=== PATIENT | male | born 1960 | race Caucasian/White ===

== ENCOUNTER 2018-04-20 10:16 | Emergency (ER) | payer BC ==
--- NOTE | 2018-04-20 11:55 | EDPHYS ---
Physician Documentation [facility] Name: Pipe Machado Jr Age: 57 yrs Sex: Male : 1960 Arrival Date: 04/20/2018 Time: 10:20 Bed 15 Private MD: Edwardo Chapman E ED Physician Olivier Downs HPI: 04/20 11:53 This 57 yrs old Male presents to ER via Ambulatory with complaints of Cough. kb 11:53 The patient or guardian reports cough, that is intermittent, described as mild, with no kb sputum. Onset: The symptoms/episode began/occurred last night. Severity of symptoms: At their worst the symptoms were mild, moderate, in the emergency department the symptoms are unchanged. Modifying factors: The symptoms are alleviated by nothing, the symptoms are aggravated by nothing. Associated signs and symptoms: Pertinent positives: rhinorrhea, Pertinent negatives: chest pain, diarrhea, ear ache, fever, rhinorrhea, sore throat, vomiting. The patient has not experienced similar symptoms in the past. The patient has not recently seen a physician. Historical: - Allergies: 10:33 PENICILLINS; aj1 - Home Meds: 10:33 None [Active]; aj1 - PMHx: 10:33 Myocardial infarction; aj1 - PSHx: 10:33 Cholecystectomy; finger amuptation; Knee surgery; aj1 - Immunization history:: Flu vaccine is up to date. - Social history:: Smoking status: Patient/guardian denies using tobacco. - Ebola Screening: : Patient denies travel to an Ebola-affected area in the 21 days before illness onset. ROS: 11:52 Constitutional: Negative for fever, chills, and weight loss, Cardiovascular: Negative kb for chest pain, palpitations, and edema, Abdomen/GI: Negative for abdominal pain, nausea, vomiting, diarrhea, and constipation, Back: Negative for injury and pain, : Negative for injury, bleeding, discharge, and swelling, MS/Extremity: Negative for injury and deformity, Skin: Negative for injury, rash, and discoloration, Neuro: Negative for headache, weakness, numbness, tingling, and seizure. 11:52 Respiratory: Positive for cough, with no reported sputum. 11:52 ENT: Positive for sinus congestion. kb Exam: 11:52 Constitutional: This is a well developed, well nourished patient who is awake, alert, kb and in no acute distress. Head/Face: Normocephalic, atraumatic. ENT: Nares patent. No nasal discharge, no septal abnormalities noted. Tympanic membranes are normal and external auditory canals are clear. Oropharynx with no redness, swelling, or masses, exudates, or evidence of obstruction, uvula midline. Mucous membranes moist. Neck: Trachea midline, no thyromegaly or masses palpated, and no cervical lymphadenopathy. Supple, full range of motion without nuchal rigidity, or vertebral point tenderness. No Meningismus. Chest/axilla: Normal chest wall appearance and motion. Nontender with no deformity. No lesions are appreciated. Cardiovascular: Regular rate and rhythm with a normal S1 and S2. No gallops, murmurs, or rubs. Normal PMI, no JVD. No pulse deficits. Respiratory: Lungs have equal breath sounds bilaterally, clear to auscultation and percussion. No rales, rhonchi or wheezes noted. No increased work of breathing, no retractions or nasal flaring. Abdomen/GI: Soft, non-tender, with normal bowel sounds. No distension or tympany. No guarding or rebound. No evidence of tenderness throughout. Skin: Warm, dry with normal turgor. Normal color with no rashes, no lesions, and no evidence of cellulitis. MS/ Extremity: Pulses equal, no cyanosis. Neurovascular intact. Full, normal range of motion. Neuro: Awake and alert, GCS 15, oriented to person, place, time, and situation. Cranial nerves II-XII grossly intact. Motor strength 5/5 in all extremities. Sensory grossly intact. Cerebellar exam normal. Normal gait. Vital Signs: 10:33 BP 113 / 81; Pulse 78; Resp 18; Temp 97.8; Pulse Ox 98% on R/A; Weight 120.2 kg (R); aj1 Height 6 ft. 6 in. (198.12 cm) (R); Pain 0/10; 11:30 BP 116 / 83; Pulse 81; Resp 17; Pulse Ox 99% on R/A; rb1 12:20 BP 115 / 79; Pulse 75; Resp 17; Pulse Ox 98% on R/A; rb1 10:33 Body Mass Index 30.62 (120.20 kg, 198.12 cm) aj MDM: 10:31 Patient medically screened. kb 11:52 Data reviewed: vital signs, nurses notes. Data interpreted: Pulse oximetry: on room air kb is 98 %. Interpretation: normal. Counseling: I had a detailed discussion with the patient and/or guardian regarding: the historical points, exam findings, and any diagnostic results supporting the discharge/admit diagnosis, lab results, the need for outpatient follow up, a family practitioner, to return to the emergency department if symptoms worsen or persist or if there are any questions or concerns that arise at home. 04/20 10:43 Order name: Flu; Complete Time: 11:41 kb 04/20 10:43 Order name: Strep; Complete Time: 11:41 kb 04/20 11:26 Order name: Throat Culture EDMS Administered Medications: 12:08 Drug: SOLU-Medrol 125 mg Route: IM; Site: right gluteus; rb1 Disposition: 13:28 Co-signature as Attending Physician, Olivier Downs MD. rn Disposition: 04/20/18 11:55 Discharged to Home. Impression: Acute sinusitis. - Condition is Stable. - Discharge Instructions: Sinusitis, Adult, [id number]. - Medication Reconciliation Form, Thank You Letter, Antibiotic Education, Prescription Opioid Use form. - Follow up: Emergency Department; When: As needed; Reason: Worsening of condition. Follow up: Private Physician; When: 2 - 3 days; Reason: Recheck today's complaints, Continuance of care, Re-evaluation by your physician. - Notes: Take Flonase Daily Take an antihistamine with decongestant daily (Claritin D, Tona D or Zyrtec D) Take Delsym as needed for cough Signatures: Dispatcher [employer] EDMS Suad Purvis, [employer]ER-C [employer] SERVICER-CkMariah Shelton, RN RN aj1 Olivier Downs MD MD rn Barber, Rebecca, RN RN rb1 Corrections: (The following items were deleted from the chart) 11:52 11:52 Constitutional: Negative for fever, chills, and weight loss, Cardiovascular: kb Negative for chest pain, palpitations, and edema, Abdomen/GI: Negative for abdominal pain, nausea, vomiting, diarrhea, and constipation, Back: Negative for injury and pain, : Negative for injury, bleeding, discharge, and swelling, MS/Extremity: Negative for injury and deformity, Skin: Negative for injury, rash, and discoloration, Neuro: Negative for headache, weakness, numbness, tingling, and seizure, kb 12:25 11:55 04/20/2018 11:55 Discharged to Home. Impression: Acute sinusitis. Condition is rb1 Stable. Discharge Instructions: Sinusitis, Adult, [id number]. Forms are Medication Reconciliation Form, Thank You Letter, Antibiotic Education, Prescription Opioid Use. Follow up: Emergency Department; When: As needed; Reason: Worsening of condition. Follow up: Private Physician; When: 2 - 3 days; Reason: Recheck today's complaints, Continuance of care, Re-evaluation by your physician. kb
--- NOTE | 2018-04-20 11:55 | ER ---
Nurse's Notes [facility] Name: Pipe Machado Jr Age: 57 yrs Sex: Male : 1960 Arrival Date: 04/20/2018 Time: 10:20 Bed 15 Private MD: Edwardo Chapman E Diagnosis: Acute sinusitis Presentation: 04/20 10:30 Presenting complaint: Patient states: "I had a bad cough last night and it was deep and aj1 I had sinus drainage all night." Reports running fever this morning. Transition of care: patient was not received from another setting of care. Transition of care: patient was not received from another setting of care. Onset of symptoms was April 20, 2018. Risk Assessment: Do you want to hurt yourself or someone else? Patient reports no desire to harm self or others. Initial Sepsis Screen: Does the patient meet any 2 criteria? No. Patient's initial sepsis screen is negative. Does the patient have a suspected source of infection? No. Patient's initial sepsis screen is negative. Care prior to arrival: None. 10:30 Method Of Arrival: Ambulatory aj1 10:30 Acuity: ISMAEL 4 aj1 Triage Assessment: 10:33 General: Appears in no apparent distress. comfortable, Behavior is calm, cooperative, aj1 appropriate for age. Pain: Denies pain. EENT: Parent/caregiver reports the patient having sinus drainage. Neuro: Level of Consciousness is awake, alert, obeys commands. Cardiovascular: Patient's skin is warm and dry. Respiratory: Reports cough that is hacking, persistent Airway is patent Respiratory effort is even, unlabored, Respiratory pattern is regular, symmetrical. Historical: - Allergies: 10:33 PENICILLINS; aj1 - Home Meds: 10:33 None [Active]; aj1 - PMHx: 10:33 Myocardial infarction; aj1 - PSHx: 10:33 Cholecystectomy; finger amuptation; Knee surgery; aj1 - Immunization history:: Flu vaccine is up to date. - Social history:: Smoking status: Patient/guardian denies using tobacco. - Ebola Screening: : Patient denies travel to an Ebola-affected area in the 21 days before illness onset. Screenin:35 Abuse screen: Denies threats or abuse. Nutritional screening: No deficits noted. rb1 Tuberculosis screening: No symptoms or risk factors identified. Fall Risk None identified. Assessment: 10:35 General: Appears in no apparent distress. comfortable, Behavior is calm, cooperative, rb1 Reports fever for 0-12 hours. Pain: Denies pain. Neuro: Level of Consciousness is awake, alert, obeys commands, Oriented to person, place, time, situation. Cardiovascular: Capillary refill < 3 seconds is brisk in bilateral fingers. Respiratory: Reports cough that is productive, doesn't know what color the sputum is. Airway is patent Respiratory effort is even, unlabored, Respiratory pattern is regular, symmetrical. GI: No signs and/or symptoms were reported involving the gastrointestinal system. : No signs and/or symptoms were reported regarding the genitourinary system. Derm: Skin is pink, warm \\T\\ dry. 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 11:30 Reassessment: Patient appears in no apparent distress at this time. No changes from rb1 previously documented assessment. 12:09 Reassessment: Discharge pending due to shot time. rb1 12:23 Reassessment: No adverse reactions are seen at this time. Pt. tolerated shot well. rb1 Vital Signs: 10:33 BP 113 / 81; Pulse 78; Resp 18; Temp 97.8; Pulse Ox 98% on R/A; Weight 120.2 kg (R); aj1 Height 6 ft. 6 in. (198.12 cm) (R); Pain 0/10; 11:30 BP 116 / 83; Pulse 81; Resp 17; Pulse Ox 99% on R/A; rb1 12:20 BP 115 / 79; Pulse 75; Resp 17; Pulse Ox 98% on R/A; rb1 10:33 Body Mass Index 30.62 (120.20 kg, 198.12 cm) aj1 ED Course: 10:20 Patient arrived in ED. sb2 10:20 Edwardo Chapman MD is Private Physician. sb2 10:20 Suad Purvis [facility]-C [facility]. kb 10:20 Olivier Downs MD is Attending Physician. kb 10:32 Triage completed. aj1 10:33 Gina Domingo, GREGORIO is Primary Nurse. sv 10:33 Arm band placed on Patient placed in an exam room. aj1 10:35 Patient has correct armband on for positive identification. Bed in low position. Call rb1 light in reach. Side rails up X 1. Pulse ox on. NIBP on. 10:50 Flu and/or RSV swab sent to lab. Strep swab sent to lab. rb1 10:53 Laura Baldwin, RN is Primary Nurse. rb1 10:57 Strep Sent. rb1 10:57 Flu Sent. rb1 12:25 No provider procedures requiring assistance completed. rb1 12:25 Patient did not have IV access during this emergency room visit. rb1 Administered Medications: 12:08 Drug: SOLU-Medrol 125 mg Route: IM; Site: right gluteus; rb1 Outcome: 11:55 Discharge ordered by . kb 12:25 Patient left the ED. rb1 12:25 Discharged to home ambulatory. rb1 12: Condition: stable 12:25 Discharge instructions given to patient, Instructed on discharge instructions, follow up and referral plans. Demonstrated understanding of instructions, follow-up care, Prescriptions given X none Signatures: Suad Purvis, [employer]-C [employer]-Ckb Mariah Tang RN RN aj1 Gina Domingo RN RN sv Laura Baldwin, RN RN rb1 Taya Anders sb2 Corrections: (The following items were deleted from the chart) 10:58 10:35 Flu and/or RSV swab sent to lab. Strep swab sent to lab. rb1 rb1 10:58 10:57 Influenza Screen (A \\T\\ B)+[email or web address].[email or web address] drawn and sent. rb1 rb1
[2018-04-20] MEDS ORDERED: METHYLPREDNISOLONE 125 MG INJ ONE (12:16)
== END 2018-04-20 12:25 | disposition home or self-care (01) ==
LOC: ER 10:16
DX: J32.9 Chronic sinusitis, unspecified (principal); I25.2 Old myocardial infarction
CPT/HCPCS: 87070; 87081; 87804; 96372; 99284; J2930